=== PATIENT | male | born 1965 | race Two or more races ===

== ENCOUNTER 2019-06-14 18:33 | Inpatient (IN) | payer MEDICAID ==
[~2019-06-14] VITALS: Ht 162.6 cm; Wt 83.2 kg
[2019-06-14 19:15] LABS: Basophils # (auto) 0 10 ^3/uL (0-0.2); Basophils % (auto) 0.6 % (0.0-2.0); Eosinophils # (auto) 0.1 10 ^3/uL (0-0.8); Eosinophils % (auto) 0.8 % (0.0-7.0); Hematocrit 47.1 % (41.0-53.0); Hemoglobin 15.9 g/dL (13.5-17.5); Lymphocytes # (auto) 1.9 10 ^3/uL (0.4-5.4); Lymphocytes % (auto) 26.4 % (10.0-50.0); Mean Corpuscular Hemoglobin 29.4 pg (28.0-32.0); Mean Corpuscular Hgb Conc. 33.8 g/dL (32.0-36.0); Monocytes # (auto) 0.6 10 ^3/uL (0-1.3); Monocytes % (auto) 8.9 % (0.0-12.0); Neutrophils # (auto) 4.5 10 ^3/uL (1.6-8.6); Neutrophils % (auto) 63.3 % (37.0-80.0); Nucleated Red Blood Cells % 0.1 %; Platelet Count (auto) 200 10^3/uL (140-450); Red Blood Cells 5.41 10^6/uL (4.5-5.90); Red Cell Distribution Width 13.5 % (11.8-14.3); White Blood Cell 7.1 10^3/uL (4.4-10.8)
[2019-06-14] MEDS ORDERED: ASCORBIC ACID 500 MG TAB PO ONE (19:15)
[2019-06-14] MEDS ORDERED: ERGOCALCIFEROL 50,000 UNIT(1.25MG) CAP PO SCH (19:15)
[2019-06-14] MEDS ORDERED: ZINC SULFATE 220mg CAP or TAB PO ONE (19:15)
[2019-06-14 19:30] LABS: Albumin 3.9 g/dL (3.4-5.0); Anion Gap 9 (5-15); Blood Urea Nitrogen 15 mg/dL (7-18); Calcium 8.8 mg/dL (8.5-10.1); Carbon Dioxide 26 mmol/L (21-32); Chloride 103 mmol/L (98-107); Glucose 102 mg/dL (74-106); Potassium 3.5 mmol/L (3.5-5.1); Sodium 138 mmol/L (136-145)
[2019-06-14 19:35] LABS: Alanine Aminotransferase 43 U/L (16-61); Alkaline Phosphatase 126 U/L (45-117); Aspartate Aminotransferase 31 U/L (15-37); BUN/Creatinine Ratio 12.3; Bilirubin, Total 0.5 mg/dL (0.2-1.0); CRP High Sensitivity 0.87 mg/dL (< 0.3); GFR African American 80 mL/min; GFR Non-African American 66 mL/min; Lactate Dehydrogenase 229 U/L (87-241); Total Protein 8.8 g/dL (6.4-8.2)
[2019-06-14] MEDS ORDERED: HYDROcodone-ACET 5/325MG TAB PO PRN (20:00)
[2019-06-14] MEDS ORDERED: MORPHINE SULF INJ 2 MG/ML SYRINGE 1ML IV PRN ×2 (20:00)
[2019-06-14] MEDS ORDERED: NITROGLYCERIN 0.4 MG SL TAB SL PRN (20:00)
[2019-06-14] MEDS ORDERED: ACETAMINOPHEN 500 MG TAB PO PRN (20:00)
[2019-06-14] MEDS ORDERED: FUROSEMIDE 20 MG/2 ML VIAL IV ONE (20:00)
[2019-06-14] MEDS ORDERED: ONDANSETRON HCL 4 MG/2 ML VIAL IV PRN (20:00)
[2019-06-14 20:39] LABS: Cholesterol 243 mg/dL (< 200)
[2019-06-14 20:42] LABS: HDL Cholesterol 37 mg/dL (40-59); LDL Cholesterol 144 mg/dL (< 100); Triglycerides 333 mg/dL (< 150)
[2019-06-14 20:55] VITALS: BP 133/99
[2019-06-14] MEDS: DOXYCYCLINE 100MG/250ML 250 ML IV SCH (21:59)
[2019-06-14] MEDS ORDERED: ALBUTEROL SULF HFA 90MCG INH 200DOSE IN SCH (22:00)
[2019-06-15 08:00] VITALS: BP 126/80
[2019-06-15 09:00] VITALS: BP 126/80
[2019-06-15] MEDS: DOXYCYCLINE 100MG/250ML 250 ML IV SCH ×2 (09:21→21:34)
[2019-06-15] MEDS: ZINC SULFATE 220mg CAP or TAB PO SCH (09:22)
[2019-06-15] MEDS: ASCORBIC ACID 1,000 MG TAB PO SCH (09:22)
[2019-06-15] MEDS: CHOLECALCIFEROL (VITD3) 1,000IU=25mCg TAB PO SCH (09:23)
[2019-06-15] MEDS: ENOXAPARIN SOD 40 MG/0.4 ML SYRINGE SC SCH (09:23)
[2019-06-15] MEDS ORDERED: FUROSEMIDE 20 MG/2 ML VIAL IV SCH (10:00)
[2019-06-15 13:00] VITALS: BP 132/89
[2019-06-15] MEDS ORDERED: TEMAZEPAM 15 MG CAP PO PRN (14:45)
[2019-06-15 17:00] VITALS: BP 128/86
[2019-06-15 21:30] VITALS: BP 126/83
[2019-06-15] MEDS ORDERED: ALBUTEROL SULF HFA 90MCG INH 200DOSE IN SCH (22:00)
[2019-06-16 05:30] VITALS: BP 125/88
[2019-06-16 06:08] LABS: Basophils # (auto) 0 10 ^3/uL (0-0.2); Basophils % (auto) 0.4 % (0.0-2.0); Eosinophils # (auto) 0.1 10 ^3/uL (0-0.8); Hematocrit 44.3 % (41.0-53.0); Hemoglobin 15.3 g/dL (13.5-17.5); Lymphocytes # (auto) 1.7 10 ^3/uL (0.4-5.4); Lymphocytes % (auto) 27.8 % (10.0-50.0); Mean Corpuscular Hemoglobin 29.8 pg (28.0-32.0); Mean Corpuscular Hgb Conc. 34.6 g/dL (32.0-36.0); Mean Corpuscular Volume 86.2 fL (80.0-100.0); Monocytes # (auto) 0.8 10 ^3/uL (0-1.3); Monocytes % (auto) 12.8 % (0.0-12.0); Neutrophils # (auto) 3.5 10 ^3/uL (1.6-8.6); Nucleated Red Blood Cells % 0.3 %; Platelet Count (auto) 201 10^3/uL (140-450); Red Blood Cells 5.14 10^6/uL (4.5-5.90); Red Cell Distribution Width 13.4 % (11.8-14.3)
[2019-06-16 06:33] LABS: Potassium 3.5 mmol/L (3.5-5.1)
[2019-06-16 06:46] LABS: Albumin 3.6 g/dL (3.4-5.0); BUN/Creatinine Ratio 15.8; Bilirubin, Total 0.7 mg/dL (0.2-1.0); Calcium 8.7 mg/dL (8.5-10.1); Total Protein 8.2 g/dL (6.4-8.2)
[2019-06-16 09:00] VITALS: BP 125/90
[2019-06-16] MEDS: FUROSEMIDE 100 MG/10ML VIAL IV SCH (11:36)
[2019-06-16] MEDS: DOXYCYCLINE 100MG/250ML 250 ML IV SCH ×2 (11:36→22:18)
[2019-06-16] MEDS: POTASSIUM CHL 20 Meq TABLET PO SCH (11:37)
[2019-06-16] MEDS: ZINC SULFATE 220mg CAP or TAB PO SCH (11:37)
[2019-06-16] MEDS: ASCORBIC ACID 1,000 MG TAB PO SCH (11:38)
[2019-06-16] MEDS: CHOLECALCIFEROL (VITD3) 1,000IU=25mCg TAB PO SCH (11:39)
[2019-06-16] MEDS: ENOXAPARIN SOD 40 MG/0.4 ML SYRINGE SC SCH (11:42)
[2019-06-16 13:00] VITALS: BP 129/91
[2019-06-16 17:00] VITALS: BP 121/82
[2019-06-16 22:00] VITALS: BP 123/82
[2019-06-17 02:10] VITALS: BP 120/78
[2019-06-17 05:47] VITALS: BP 126/79
[2019-06-17 08:00] VITALS: BP 119/71
[2019-06-17] MEDS: DOXYCYCLINE 100MG/250ML 250 ML IV SCH (09:52)
[2019-06-17] MEDS: FUROSEMIDE 100 MG/10ML VIAL IV SCH (09:52)
[2019-06-17] MEDS: ZINC SULFATE 220mg CAP or TAB PO SCH (09:52)
[2019-06-17] MEDS: POTASSIUM CHL 20 Meq TABLET PO SCH (09:52)
[2019-06-17] MEDS: ASCORBIC ACID 1,000 MG TAB PO SCH (09:53)
[2019-06-17] MEDS: CHOLECALCIFEROL (VITD3) 1,000IU=25mCg TAB PO SCH (09:53)
[2019-06-17] MEDS: ENOXAPARIN SOD 40 MG/0.4 ML SYRINGE SC SCH (09:53)
[2019-06-17] MEDS ORDERED: AZIT500T66 PO (10:58)
[2019-06-17] MEDS ORDERED: MULTTAB61 PO (10:58)
[2019-06-17 11:21] VITALS: BP 119/71
[2019-06-17 12:00] VITALS: BP 147/92
[2019-06-17] MEDS ORDERED: DOXYCYCLINE 100 MG TAB/CAP PO SCH (22:00)
== END 2019-06-17 14:38 | disposition home or self-care (01) | DRG 137 ==
LOC: ER 18:33 → TELE 18:34 → TELE-EAST 20:55
PROVIDERS: ADMIT Nurse Practitioner Acute Care; ATTEND Hospitalist
DX: U07.1 COVID-19 (principal); J96.01 Acute respiratory failure with hypoxia; E78.5 Hyperlipidemia, unspecified; E66.9 Obesity, unspecified; Z87.442 Personal history of urinary calculi; Z85.51 Personal history of malignant neoplasm of bladder; Z89.022 Acquired absence of left finger(s); Z79.899 Other long term (current) drug therapy; Z85.46 Personal history of malignant neoplasm of prostate; Z68.31 Body mass index [BMI] 31.0-31.9, adult; J12.89 Other viral pneumonia
CPT/HCPCS: 36415; 71045; 80053; 80061; 82728; 83605; 83615; 83880; 84484; 85025; 85379; 86141; 87040; 87070; 87804; 87880; 93005; G0378; J3490